=== PATIENT | female | born 1990 | race African-American/Black ===

== ENCOUNTER 2017-11-16 22:24 | Emergency (ER) | payer OTHER ==
[~2017-11-16] VITALS: Ht 165.1 cm; Wt 86.2 kg
[2017-11-16] MEDS ORDERED: NORCO 5-325 TA1 EACH PO (23:23)
[2017-11-17 00:15] VITALS: BP 132/80
== END 2017-11-17 00:15 | disposition home or self-care (01) ==
LOC: ER 22:24
DX: K08.89 Other specified disorders of teeth and supporting structures (principal)